=== PATIENT | female | born 1945 ===

== ENCOUNTER 2017-07-08 13:17 | Inpatient (IN) | payer OTHER ==
[~2017-07-08] VITALS: Ht 157.5 cm; Wt 83.9 kg
== END 2017-07-16 14:03 | disposition home or self-care (01) | DRG 178 ==
LOC: ER 13:17 → MEDI 20:55 → SEC-K 20:55 → MEDI 07-09 13:09
PROC: 3E0F7GC Introduction of Other Therapeutic Substance into Respiratory Tract, Via Natural or Artificial Opening (ICD-10-PCS; principal; 2017-07-08)
PROC: 4A033R1 Measurement of Arterial Saturation, Peripheral, Percutaneous Approach (ICD-10-PCS; 2017-07-08)
PROC: BB24ZZZ Computerized Tomography (CT Scan) of Bilateral Lungs (ICD-10-PCS; 2017-07-08)
PROC: B246ZZZ Ultrasonography of Right and Left Heart (ICD-10-PCS; 2017-07-15)
DX: A31.0 Pulmonary mycobacterial infection (principal); J45.32 Mild persistent asthma with status asthmaticus; J18.9 Pneumonia, unspecified organism; I10 Essential (primary) hypertension; R09.02 Hypoxemia; J20.9 Acute bronchitis, unspecified; E78.4 Other hyperlipidemia; G47.33 Obstructive sleep apnea (adult) (pediatric); R07.89 Other chest pain